=== PATIENT | male | born 1975 | race Caucasian/White ===

== ENCOUNTER 2023-12-18 15:34 | Emergency (ER) | payer OTHER, SELFPAY ==
[2023-12-18 15:35] VITALS: BP 120/80; PULSE 98; RESP 16; TEMP 35.7; O2SAT 97; BMI 38.2
--- NOTE | 2023-12-18 16:32 | EKG12_ITS ---
Test Reason : SYNCOPE Blood Pressure : / mmHG Vent. Rate : 104 BPM Atrial Rate : 104 BPM P-R Int : 150 ms QRS Dur : 100 ms QT Int : 342 ms P-R-T Axes : 038 -38 019 degrees QTc Int : 449 ms Sinus tachycardia Left axis deviation Cannot rule out Anterior infarct , age undetermined Abnormal ECG Confirmed by BENITEZ ALANIS, MARGUERITE ([id number]), editor farm journal DEE DEE CRAMER ([id number]) on 12/20/2023 6:58:41 AM Referred By: CORTNEY/AR Confirmed By:MARGUERITE MARQUIS MD
--- NOTE | 2023-12-18 16:33 | EDS_ITS ---
HPI History of Present Illness Chief Complaint: Syncope Narrative Narrative: 48-year-old male who denies significant past medical history presents with his after possible syncopal episode. He denies any significant past medical history but has not seen a physician in years. He was outside working in the yard all morning. He states he took frequent breaks, however he did not eat breakfast this morning. He came in from the heat, states he felt really tired. He was sitting down at the table, and felt very lightheaded. He denies any chest pain or shortness of breath. He thought he was going to pass out, closed his eyes, and thought he was going to pass out but did not want to lean forward. The next thing he remembered he woke up and heard his family saying that they should call 911. According to his , he passed out for anywhere from 20 seconds to a minute, and he had myoclonic activity with spasming but no seizure activity. He denies any loss of bowel or bladder. He had vomited once. Currently, he feels fine. EMS was called to the house and he states they did an EKG and took vitals and wanted to transport him but he declined. He felt well enough to come to the emergency department to be checked out. [facility] Medical History no medical history Allergy/AdvReac Type Severity Reaction Status Date / Time No Known Allergies Allergy Verified 12/18/23 15:35 Social History Smoking Status: Never smoker ROS ROS ED ROS Narrative Constitutional: No fever, no chills. HEENT: No sore throat. No neck pain. No loss of vision. No rhinorrhea. Cardiovascular: No chest pain. No palpitations. No pedal edema. Respiratory: No cough, no shortness of breath. Abdominal: No abdominal pain. 1 episode of vomiting Genitourinary: No dysuria. No hematuria. Musculoskeletal: No myalgias. No arthralgias. Neurologic: No headaches. No dizziness. Positive lightheadedness and near syncope versus syncope. Skin: No rash. No change in color. Psychiatric: No depression. No anxiety. EXAM Physical Exam Narrative Exam Narrative: Afebrile. Vital signs noted. HEENT: Normocephalic. Atraumatic. PERRL, EOMI. Neck soft and supple. No point tenderness or step off. Cardiovascular: Regular rate and rhythm. No murmurs, rubs, or gallops appreciated. Respiratory: No tachypnea. Lungs clear to auscultation bilaterally. Gastrointestinal: Abdomen soft, nontender, with normoactive bowel sounds. No rebound or guarding. Neurological: Awake. Alert. Nonfocal, nonlateralizing. Skin: No rash. Normal color. No pallor. Musculoskeletal: No pedal edema. Full range of motion extremities. Const Vital Signs: 12/18/23 15:35 12/18/23 17:02 12/18/23 17:03 Temperature 96.3 F L Temperature Source Temporal Pulse Rate 98 90 Respiratory Rate 16 16 Respiratory Effort Normal Non-Labored Respiratory Pattern Normal Blood Pressure 120/80 138/82 H Blood Pressure Mean 93 100 Pulse Ox 97 97 Oxygen Delivery Method Room Air Room Air MDM MDM MDM Narrative Medical decision making narrative: I do feel that in the differential diagnosis would be vasovagal syncope versus transient drop in blood glucose levels versus cardiac dysrhythmia. I have low suspicion for cardiac dysrhythmia and for any seizure activity. Patient did not have postictal signs, and feels back to normal and at baseline currently. Given the fact that he has not seen a physician I do feel that these baseline laboratory should be drawn as well as repeat EKG and single troponin. He will be bolused IV fluids. I do think he is necessarily orthostatic, but he may have experienced heat induced syncope or. He is able to stand currently. I do not feel he requires CT of the brain. EKG obtained and interpreted by myself independently as sinus tachycardia at 104 bpm without ectopy or acute ST changes. No STEMI. I reviewed his laboratory work and he has a leukocytosis of 19.6, but he does not describe any infectious process. There is no prior with which to compare. Hemoglobin is normal at 15.0, hematocrit 44.8, platelet count normal at 356. BMP is grossly unremarkable with a creatinine of 1.21 and a BUN that is normal. Sodium 138 with potassium 3.8. High-sensitivity troponin is 13. Upon repeat examination, at approximately 1820, patient feels unchanged, as he felt fine prior to workup. I do feel he probably had more of a vasovagal syncope or heat exhaustion. His heart rate is normal in the 90s currently. I feel he be discharged to follow-up with a primary care provider. Return instructions were reviewed. Patient and comfortable with the plan. Disposition is discharged home in stable condition. History & Record Review Discussion w/independent historian: Patient Lab Data Attestation: I reviewed the patient's lab results. Labs: Laboratory Results - last 24 hr 12/18/23 17:00 WBC 19.6 H RBC 5.01 Hgb 15.0 Hct 44.8 MCV 89.4 MCH 29.9 MCHC 33.5 RDW Std Deviation 41.5 RDW Coeff of Kyle 12.7 Plt Count 359 MPV 9.2 Immature Gran % (Auto) 0.600 Neut % (Auto) 89.0 H Lymph % (Auto) 5.8 L [place] % (Auto) 4.2 Eos % (Auto) 0.0 Baso % (Auto) 0.4 Absolute Neuts (auto) 17.5 H Absolute Lymphs (auto) 1.13 Nucleated RBC % 0 Sodium 138 Potassium 3.8 Chloride 106 Carbon Dioxide 29.0 Anion Gap 3 L BUN 14 Creatinine 1.21 Estim Creat Clear Calc 95.29 Est GFR (MDRD) Af Amer 81 Est GFR (MDRD) Non-Af 67 BUN/Creatinine Ratio 11.6 Glucose 79 Calcium 9.6 Troponin I High Sens 13 Discharge Plan Triage Chief Complaint: Syncope ED Provider: Clayton Mason Dx/Rx/DC Orders Clinical Impression: Vasovagal syncope, Heat exhaustion Instructions: ED Heat Exhaustion, ED Fainting, Vagal Reaction Primary Care Provider: Care Physician,No Primary Referrals: Magdiel Meeks MD [Med Staff - [employer] Survey Worker] - As soon as possible NOT,DEFINED [Non-Staff] - Activity Restrictions/Additional Instructions: Drink plenty of oral fluids. Remember to eat meals 3 times a day. Follow-up with primary care. Disposition Disposition: Home, Self Care
[2023-12-18 17:02] VITALS: BP 138/82; PULSE 90; RESP 16; O2SAT 97
[2023-12-18] MEDS: 0.9% Normal Saline (1000mL) 1,000 ML 1000 ML IV (17:02)
[2023-12-18 17:10] LABS: Absolute Lymphocyte Count 1.13 X10^3/uL (0.83-4.51); Absolute Neutrophil Count 17.5 X10^3/uL (2.0-7.7); Basophil# 0.08 X10^3/uL; Basophil% 0.4 % (0-1); Hematocrit 44.8 % (40-54); Lymphocyte # 1.13 X10^3/ul (0.83-4.51); Lymphocyte % 5.8 % (19-41); Mean Corp Hgb Conc 33.5 g/dL (32-36); Mean Corpuscular Hgb 29.9 pg (27.0-32.0); Mean Corpuscular Volume 89.4 fL (80-94); Mean Platelet Vol. 9.2 fl (6.2-12.0); Monocyte# 0.83 X10^3/uL; Monocyte% 4.2 % (0-10); NRBC Flagged by Analyzer 0 % (0-5); Neutrophil # 17.45 X10^3/uL (2.7-7.7); Platelet Count 359 K/mm3 (150-450); RBC Distribution Width CV 12.7 % (11.6-14.6); RBC Distribution Width SD 41.5 fl (35.1-43.9); Red Blood Count 5.01 M/mm3 (4.6-6.2); White Blood Count 19.6 K/mm3 (4.4-11.0)
[2023-12-18 17:34] LABS: Anion Gap 3 (5-15); BUN 14 mg/dL (7-18); BUN/Creat Ratio 11.6 RATIO (10-20); Calcium,Total 9.6 mg/dL (8.5-10.1); Chloride 106 mmol/L (98-107); Creatinine, Serum 1.21 mg/dL (0.70-1.30); EST Glomerular Filtration Rate 67 mL/min (>60); Est Glom Filt Rate - Afr Amer 81 mL/min (>60); Estimated Creatinine Clearance 95.29 ml/min; Glucose 79 mg/dL (74-106); Potassium 3.8 mmol/L (3.5-5.1); Sodium Level 138 mmol/L (136-145); Troponin-I HS 13 pg/mL (3.0-78.0)
[2023-12-18 18:40] VITALS: BP 130/85; PULSE 84; RESP 16; TEMP 35.8; O2SAT 98
== END 2023-12-18 18:45 | disposition home or self-care (01) ==
PROVIDERS: Emergency Provider Emergency Medicine; Visit Provider Emergency Medicine
DX: R55 Syncope and collapse (principal); T67.5XXA Heat exhaustion, unspecified, initial encounter
CPT/HCPCS: 80048; 84484; 85025; 93005; 96360; 96361; 99283; J7030; A4216